=== PATIENT | female | born 1970 | race Caucasian/White ===

== ENCOUNTER → 2016-11-24 | Day surgery (SDC) | payer OTHER ==
[2016-11-12 10:24] VITALS: Ht 161.9 cm; Wt 102.3 kg
[~2016-11-24] VITALS: Ht 161.9 cm; Wt 102.3 kg
[~2016-11-24] MED LIST: ALBUAER19 INH; FENTANYL CITRATE INJ 50 MCG/1 ML 2 ML VIAL ONE; LEVO137T3 PO; LIDOCAINE HCL 2% 2 ML VIAL (20MG/ML) ONE; PROPOFOL IV EMULSION 10 MG/ML 20 ML VIAL IV ONE; SODIUM CHLORIDE 0.9% 500ML 500 ML IV ONE
--- NOTE | 2016-11-24 13:04 | Endo History and Physical ---
History & Physical Date of Service: Nov 24, 2016. Chief Complaint: abd pain rectal bleeding Referring Physician: Dr Gamez History of Present Illness 45 yo CF who presents for EGD and Colonoscopy secondary to abdominal pain and rectal bleeding. Past Medical History Asthma, Gastrointestinal Disorder, Anxiety, High Cholesterol, Hypertension, Thyroid Disease, Depression Past Surgical History Hx Cardiac Surgery: No Hx Internal Defibrillator: No Hx Pacemaker: No Hx Abdominal Surgery: Yes (JL, LAUREN, D&C) Hx of Implantable Prosthesis: No Hx Post-Op Nausea and Vomiting: No Hx Cancer Surgery: No Hx Thoracic Surgery: No Hx Orthopedic: Yes (RT CTR) Hx Urinary Tract Surgery: Yes (CYSTOSCOPY AND STENT FOR STONE) Family History Polyp Social History Smoking Status: Current Every Day Smoker Hx Substance Use: No Hx Alcohol Use: Yes (RARELY) Allergies Coded Allergies: Amoxicillin (Verified Allergy, Severe, throat closes hives, 11/12/16) Ampicillin (Verified Allergy, Severe, throat closes hives, 11/12/16) BEE STING (Verified Allergy, Severe, SWELLING AND HIVES, 11/12/16) Erythromycin (Verified Allergy, Severe, throat closes, hives, 11/12/16) Penicillins (Verified Allergy, Severe, THROAT SWELLS SHUT,HIVES, 11/12/16) Omeprazole (Unverified Allergy, Intermediate, throat swells, 11/12/16) Paroxetine (Unverified Allergy, Unknown, THROAT SWELLS, 11/12/16) Current Medications Reported Home Medications Medications Dose Route/Sig Max Daily Dose Days Date Category Levothyroxine Sodium 137 Mcg Tab 1 Tab PO QAM 90 11/12/16 Reported Ventolin Inhaler (Albuterol) Aers 2 Puffs INH PRN 10/26/12 Reported Vital Signs Weight (Kilograms): 102.27 Height (Feet): 5 Height (Inches): 3.75 Date Time Temp Pulse Resp B/P Pulse Ox O2 Delivery O2 Flow Rate FiO2 11/24/16 12:31 36.8 77 20 146/81 97 Room Air Physical Exam General Appearance: WD/WN, no apparent distress Respiratory/Chest: Auscultation: breath sounds normal Cardiovascular: Heart Auscultation: RRR Abdomen: Bowel Sounds: normal Inspection & Palpation: soft, non-distended, no tenderness, guarding & rebound Assessment and Plan Assessment: 45 yo CF who presents for EGD and Colonoscopy secondary to abdominal pain and rectal bleeding. Plan: Proceed with EGD and colonoscopy.
--- NOTE | 2016-11-24 13:15 | GI REPORT ---
Procedure Date: 11/24/2016 12:58 PM Procedure: Upper GI endoscopy Indications: Epigastric abdominal pain Medicines: Monitored Anesthesia Care Complications: No immediate complications. Estimated Blood Loss: Estimated blood loss: none. Procedure: Pre-Anesthesia Assessment: - Prior to the procedure, a History and Physical was performed, and patient medications and allergies were reviewed. The patient's tolerance of previous anesthesia was also reviewed. The risks and benefits of the procedure and the sedation options and risks were discussed with the patient. All questions were answered, and informed consent was obtained. Prior Anticoagulants: The patient has taken no previous anticoagulant or antiplatelet agents. ASA Grade Assessment: II - A patient with mild systemic disease. After reviewing the risks and benefits, the patient was deemed in satisfactory condition to undergo the procedure. After obtaining informed consent, the endoscope was passed under direct vision. Throughout the procedure, the patient's blood pressure, pulse, and oxygen saturations were monitored continuously. The scope was introduced through the mouth, and advanced to the second part of duodenum. The upper GI endoscopy was accomplished without difficulty. The patient tolerated the procedure well. Findings: LA Grade A (one or more mucosal breaks less than 5 mm, not extending between tops of 2 mucosal folds) esophagitis with no bleeding was found. Biopsies were taken with a cold forceps for histology. A small hiatus hernia was present. Localized mild inflammation characterized by erythema was found in the gastric antrum. Biopsies were taken with a cold forceps for histology. The examined duodenum was normal. Biopsies for histology were taken with a cold forceps for evaluation of celiac disease. Impression: - LA Grade A reflux esophagitis. Biopsied. - Small hiatus hernia. - Gastritis. Biopsied. - Normal examined duodenum. Biopsied. Recommendation: - Resume previous diet. - Use Protonix (pantoprazole) 40 mg PO daily. - Await pathology results. - Return to GI office as previously scheduled. Sy Thapa, DO 11/24/2016 1:15:13 PM This report has been signed electronically. Note Initiated On: 11/24/2016 12:58 PM I attest to the content of the Intraoperative Record and orders documented therein, exceptions below
--- NOTE | 2016-11-24 13:36 | GI REPORT ---
Procedure Date: 11/24/2016 1:11 PM Procedure: Colonoscopy Indications: Rectal bleeding Medicines: Monitored Anesthesia Care Complications: No immediate complications. Estimated Blood Loss: Estimated blood loss: none. Procedure: Pre-Anesthesia Assessment: - Prior to the procedure, a History and Physical was performed, and patient medications and allergies were reviewed. The patient's tolerance of previous anesthesia was also reviewed. The risks and benefits of the procedure and the sedation options and risks were discussed with the patient. All questions were answered, and informed consent was obtained. Prior Anticoagulants: The patient has taken no previous anticoagulant or antiplatelet agents. ASA Grade Assessment: II - A patient with mild systemic disease. After reviewing the risks and benefits, the patient was deemed in satisfactory condition to undergo the procedure. After I obtained informed consent, the scope was passed under direct vision. Throughout the procedure, the patient's blood pressure, pulse, and oxygen saturations were monitored continuously. The scope was introduced through the anus and advanced to the terminal ileum. The colonoscopy was performed without difficulty. The patient tolerated the procedure well. The quality of the bowel preparation was good. The terminal ileum, ileocecal valve, appendiceal orifice, and rectum were photographed. Findings: Biopsies were taken with a cold forceps in the rectum and in the sigmoid colon for histology. Non-bleeding internal hemorrhoids were found during retroflexion. The hemorrhoids were small. Impression: - Non-bleeding internal hemorrhoids. - Biopsies were taken with a cold forceps for histology in the rectum and in the sigmoid colon. Recommendation: - Resume previous diet. - Continue present medications. - Repeat colonoscopy for surveillance based on pathology results. - Return to primary care physician as previously scheduled. Sy Thapa, 11/24/2016 1:36:43 PM This report has been signed electronically. Note Initiated On: 11/24/2016 1:11 PM I attest to the content of the Intraoperative Record and orders documented therein, exceptions below
--- NOTE | 2016-11-24 13:39 | Discharge Instructions ---
Endoscopy Patient Instructions Date / Procedure(s) Performed Nov 24, 2016. Colonoscopy, EGD Allergy Information Coded Allergies: Amoxicillin (Verified Allergy, Severe, throat closes hives, 11/12/16) Ampicillin (Verified Allergy, Severe, throat closes hives, 11/12/16) BEE STING (Verified Allergy, Severe, SWELLING AND HIVES, 11/12/16) Erythromycin (Verified Allergy, Severe, throat closes, hives, 11/12/16) Penicillins (Verified Allergy, Severe, THROAT SWELLS SHUT,HIVES, 11/12/16) Omeprazole (Unverified Allergy, Intermediate, throat swells, 11/12/16) Paroxetine (Unverified Allergy, Unknown, THROAT SWELLS, 11/12/16) Discharge Date / Findings Nov 24, 2016. EGD: Duodenal biopsies, Gastritis s/p biopsies, Hiatal hernia, Reflux esophagitis s/p biopsies Colonoscopy: Random left sided colon biopsies, Internal hemorrhoids Medication Instructions OK to resume all medications today as prescribed Reported Home Medications Medications Dose Route/Sig Max Daily Dose Days Date Category Levothyroxine Sodium 137 Mcg Tab 1 Tab PO QAM 90 11/12/16 Reported Ventolin Inhaler (Albuterol) Aers 2 Puffs INH PRN 10/26/12 Reported Provider Instructions Activity Restrictions - No exercising or heavy lifting for 24 hours. - Do not drink alcohol the day of the procedure. - Do not drive a car or operate machinery until the day after the procedure. - Do not make any important decisions or sign important papers in 24 hours after the procedure. Following Day: - Return to full activity which may include returning to work/school. Diet Start your diet with liquids and light foods (jello, soup, juice, toast). Then eat your usual diet if not nauseated. Treatment For Common After Affects For mild abdominal pain, bloating, or excessive gas: - Rest - Eat lightly - Lie on right side Follow-Up Information Follow-up with Dr Gamez as scheduled Anesthesia Information What You Should Know You have had a procedure that required some medicine to reduce anxiety and discomfort. This treatment is called moderate sedation. After receiving the treatment, you may be sleepy, but you will be able to breathe on your own. The effects of the treatment may last for several hours. Follow these instructions along with Activity/Diet recommendations noted above: * Do NOT do anything where dizziness or clumsiness would be dangerous. * Rest quietly at home today, then you can be up and about tomorrow. * Have a responsible person stay with you the rest of today. * You may have had an I.V. today. If so, you may take the dressing off later today. Recommendations Call your doctor if: * Trouble breathing * Continuous vomiting for more than 24 hours * Temperature above 101 degrees * Severe abdominal pain or bloating * Pain not relieved by pain medicine ordered * There is increased drainage or redness from any incision * A large amount of rectal bleeding greater than 2-3 tablespoons. (If you had a polyp/s removed or have hemorrhoids, a small amount of blood - from the rectum is to be expected.) * You have any unanswered questions or concerns. IN THE EVENT OF A SERIOUS EMERGENCY, GO TO THE NEAREST EMERGENCY ROOM Your discharge instructions were prepared by provider Sy Thapa. Patient Instructions Signature Page Raegan Connelly Patient (or Guardian) Signature/Date: I have read and understand the instructions given to me by my caregivers. Caregiver/RN/Doctor Signature/Date: The above-named patient and/or guardian has received patient instructions on this date. + Original Patient Signature Page (only) stays with chart. Please make copy for patient.
--- NOTE | 2016-11-24 13:56 | Anesthesiology Progress Note ---
Anesthesia Post Op Note Date & Time Nov 24, 2016 at 13:56 Vital Signs Pain Intensity: 0 Vital Signs Past 12 Hours Date Time Temp Pulse Resp B/P Pulse Ox O2 Delivery O2 Flow Rate FiO2 11/24/16 13:49 85 16 136/70 94 Room Air 11/24/16 13:34 36.8 83 16 107/59 95 Room Air 11/24/16 12:31 36.8 77 20 146/81 97 Room Air Notes Mental Status: alert / awake / arousable, participated in evaluation Pt Amnestic to Procedure: Yes Nausea / Vomiting: adequately controlled Pain: adequately controlled Airway Patency, RR, SpO2: stable & adequate BP & HR: stable & adequate Hydration State: stable & adequate Anesthetic Complications: no major complications apparent
[2016-11-24 14:04] VITALS: BP 149/86; PULSE 74; O2SAT 95
== END | disposition home or self-care (01) ==
LOC: C.GI 12:06
PROVIDERS: ATTEND Internal Medicine
DX: K62.5 Hemorrhage of anus and rectum (principal); K31.89 Other diseases of stomach and duodenum; K64.8 Other hemorrhoids; K44.9 Diaphragmatic hernia without obstruction or gangrene; K21.0 Gastro-esophageal reflux disease with esophagitis; K29.70 Gastritis, unspecified, without bleeding; J45.909 Unspecified asthma, uncomplicated; F41.9 Anxiety disorder, unspecified; E78.5 Hyperlipidemia, unspecified; I10 Essential (primary) hypertension; E07.9 Disorder of thyroid, unspecified; F32.9 Major depressive disorder, single episode, unspecified; Z98.890 Other specified postprocedural states; F17.210 Nicotine dependence, cigarettes, uncomplicated; Z88.0 Allergy status to penicillin; Z88.1 Allergy status to other antibiotic agents; Z88.5 Allergy status to narcotic agent; Z88.8 Allergy status to other drugs, medicaments and biological substances

== ENCOUNTER → 2016-11-26 | Outpatient (CLI) | payer OTHER ==
[~2016-11-26] MED LIST changes: -FENTANYL CITRATE INJ 50 MCG/1 ML 2 ML VIAL ONE; -LIDOCAINE HCL 2% 2 ML VIAL (20MG/ML) ONE; -PROPOFOL IV EMULSION 10 MG/ML 20 ML VIAL IV ONE; -SODIUM CHLORIDE 0.9% 500ML 500 ML IV ONE
--- NOTE | 2016-12-02 10:22 | POLYSOMNOGRAPH REPORT ---
CLINICAL DATA: A 46-year-old female with a BMI of [address] Thompson and Dr. Reeves for evaluation of sleep apnea with loud snoring, and witnessed apneic episodes, profound fatigue, and falling asleep easily with sedentary activity. She has restlessness of her legs with a need to get out of bed to walk around because of this. Her [place] sleepiness score was elevated at 17/24. On the evening of 11/27/2016 home sleep apnea test was performed using a [employer] type 3 monitor. RECORDING RESULTS: Total recording time was 10 hours. The patient's estimated sleep time and patient monitoring time was 9.5 hours. RESPIRATORY DATA: There was no evidence of clinically significant sleep apnea/hypopnea seen. The TORY was 3.1. There were 30 hypopneic episodes. The longest respiratory event was 29 seconds. OXIMETRY DATA: Nocturnal hypoxemia was seen. The oxygen barbie was 83%. Mean saturation was 91%. Time below 89% was 26 minutes. HEART DATA: Heart rates ranged from 52-68 beats per minute. SNORING DATA: Snoring was recorded throughout the night. IMPRESSION: No evidence of clinically significant sleep apnea/hypopnea. There was nocturnal hypoxemia seen intermittently. RECOMMENDATIONS: If PLMD or other limb movement disorders of sleep are suspected, a full in-lab nocturnal polysomnogram will be required. EYALD
== END | disposition home or self-care (01) ==
LOC: C.NEUR 10:30
PROVIDERS: ATTEND Internal Medicine Pulmonary Disease
DX: G47.30 Sleep apnea, unspecified (principal); E66.9 Obesity, unspecified; R06.83 Snoring

== ENCOUNTER → 2017-02-03 | Outpatient (CLI) | payer OTHER ==
[~2017-02-03] VITALS: Ht 161.9 cm; Wt 101.5 kg
[2017-02-03 13:17] VITALS: BP 138/83; PULSE 75; Ht 161.9 cm; Wt 101.5 kg
== END | disposition home or self-care (01) ==
LOC: C.NEUR 12:58
PROVIDERS: ATTEND Internal Medicine Pulmonary Disease
DX: R06.83 Snoring (principal); J45.909 Unspecified asthma, uncomplicated; G47.34 Idiopathic sleep related nonobstructive alveolar hypoventilation